=== PATIENT | male | born 2000 | race Caucasian/White ===

== ENCOUNTER 2024-01-27 15:24 | Emergency (ER) | payer SELFPAY ==
[2024-01-27] MEDS: Ondansetron 4 MG/2 ML SDV IVPUSH ONE (15:53)
[2024-01-27] MEDS: Sodium Chloride 0.9% 1,000 ML IV ONE ×2 (15:53→19:44)
[2024-01-27] MEDS: Morphine 4 MG/ML Syringe IVPUSH ONE (15:53)
[2024-01-27 16:05] LABS: BASOPHILS ABSOLUTE AUTO 0.04 K/uL (0.00-0.20); BASOPHILS PERCENT AUTO 0.3 % (0.0-1.0); EOSINOPHILS ABSOLUTE AUTO 0.02 K/uL (0.00-0.45); EOSINOPHILS PERCENT AUTO 0.1 % (0.0-6.0); HEMOGLOBIN 16.8 g/dL (14.0-18.0); IMMATURE GRAN ABSOLUTE AUTO 0.06 K/uL (0.00-0.05); IMMATURE GRAN PERCENT AUTO 0.4 % (0.0-0.4); LYMPHOCYTES ABSOLUTE AUTO 0.87 K/uL (1.00-4.80); MEAN CORPUSCULAR HGB CONC 35.7 g/dL (32.0-36.0); MEAN CORPUSCULAR VOLUME 83.9 fL (83.0-99.0); MEAN PLATELET VOLUME 10.1 fL (9.4-12.4); MONOCYTES ABSOLUTE AUTO 0.59 K/uL (0.00-0.80); MONOCYTES PERCENT AUTO 4.1 % (0.0-8.0); NEUTROPHILS ABSOLUTE AUTO 12.87 K/uL (1.80-7.70); NEUTROPHILS PERCENT AUTO 89.1 % (41.0-71.0); PLATELET COUNT,PLT 303 K/uL (150-400); WHITE BLOOD CELL COUNT,WBC 14.45 K/uL (3.9-11.3)
[2024-01-27 16:37] LABS: ALANINE AMINOTRANSFERASE,ALT 79 IU/L (14-63); ALBUMIN 3.8 g/dL (3.4-5.0); ALKALINE PHOSPHATASE 54 U/L (46-116); ASPARTATE AMNIOTRANSFERASE,AST 24 IU/L (15-37); BILIRUBIN TOTAL 1.2 mg/dL (0.2-1.0); BLOOD UREA NITROGEN,BUN 14 mg/dL (7.0-18.0); CALCIUM 8.8 mg/dL (8.5-10.1); CARBON DIOXIDE,CO2 25.4 mmol/L (21.0-32.0); CHLORIDE,CL 100 mmol/L (98-107); CREATINE KINASE,CK 70 U/L (26-308); CREATININE 1.1 mg/dL (0.8-1.3); EST CRCL DRUG DOSING (CG) 103.55 mL/min; GLUCOSE RANDOM 104 mg/dL (74-106); LIPASE 29 U/L (16-77); POTASSIUM,K 3.6 mmol/L (3.5-5.1); PROTEIN TOTAL,TP 7.7 g/dL (6.4-8.2); SODIUM,NA 137 mmol/L (136-148)
[2024-01-27 16:38] LABS: LACTIC ACID 1.7 mmol/L (0.4-2.0)
[2024-01-27 16:40] LABS: ESTIMATED GFR 96 mL/min (>60)
[2024-01-27 16:47] LABS: CORONAVIRUS COVID-19 NAA NEGATIVE (NEGATIVE); INFLUENZA A NAA NEGATIVE (NEGATIVE); INFLUENZA B NAA NEGATIVE (NEGATIVE)
[2024-01-27] MEDS: Iopamidol 755 MG/ML 500 ML Multipack Bottle IVPUSH STA (17:32)
[2024-01-27] MEDS: HYDROmorphone 1 MG/ML Syringe IVPUSH ONE (17:56)
[2024-01-27] MEDS: Ketorolac 30 MG/ML SDV IVPUSH ONE (19:44)
[2024-01-27 19:59] LABS: APPEARANCE,URINE CLEAR; BILIRUBIN,URINE NEGATIVE (NEGATIVE); COLOR,URINE YELLOW; GLUCOSE,URINE NEGATIVE (NEGATIVE); KETONES,URINE NEGATIVE (NEGATIVE); LEUKOCYTE ESTERASE,URINE NEGATIVE (NEGATIVE); NITRITE,URINE NEGATIVE (NEGATIVE); OCCULT BLOOD,URINE NEGATIVE (NEGATIVE); PH,URINE 7.5 (5.0-8.0); PROTEIN,URINE NEGATIVE (NEGATIVE)
== END 2024-01-27 21:45 | disposition home or self-care (01) ==
LOC: MW.ED 15:24
DX: R10.12 Left upper quadrant pain (principal); R10.32 Left lower quadrant pain; Z88.8 Allergy status to other drugs, medicaments and biological substances; Z75.8 Other problems related to medical facilities and other health care
CPT/HCPCS: 0240U; 36415; 74177; 80053; 81003; 82550; 83605; 83690; 84484; 85025; 85379; 87040; 93005; 96361; 96374; 96375; 99285; J1170; J1885; J2270; J2405; J7030; Q9967; 93010; 99284